=== PATIENT | female | born 1980 | race Caucasian/White ===

== ENCOUNTER 2017-09-01 18:07 | Emergency (ER) | payer OTHER ==
[2017-09-01 18:22] VITALS: TEMP 99.1; BMI 19.3
--- NOTE | 2017-09-01 19:37 | PDOC ---
History of Present Illness - General Chief Complaint: Psychiatric Stated Complaint: DIZZINESS Time Seen by Provider: 09/01/17 19:18 History Source: Patient - History of Present Illness Initial Comments: 09/01/17 19:32 37 year old female c/o about feeling dizzy while driving followed by palpitations similar to panic attacks. patient has a history of anxiety and hypertension. recently changed to Lopressor 50mg daily. patient also reports that today she was told by her boss that she would be fired if she doesn't show up to work on Wednesday. She said work has been stressful lately working 50hours/ week. patient is currently asymptomatic. Past History - Past Medical History Allergies/Adverse Reactions: Allergies Allergy/AdvReac Type Severity Reaction Status Date / Time Penicillins Allergy Verified 09/01/17 18:17 epinephrine AdvReac Verified 09/01/17 18:17 HTN: Yes Psychiatric Problems: Yes (anxiety/depression) - Suicide/Smoking/Psychosocial Hx Smoking History: Never smoked Have you smoked in the past 12 months: No Information on smoking cessation initiated: No Hx Alcohol Use: No Drug/Substance Use Hx: No Substance Use Type: None Review of Systems - Review of Systems Able to Perform ROS?: Yes *Physical Exam - Vital Signs Last Vital Signs Temp Pulse Resp BP Pulse Ox 99.1 F 110 H 24 159/99 100 09/01/17 18:17 09/01/17 18:17 09/01/17 18:17 09/01/17 18:17 09/01/17 18:17 - Physical Exam General Appearance: Yes: Appropriately Dressed Respiratory/Chest: positive: Lungs Clear, Normal Breath Sounds Cardiovascular: positive: Regular Rhythm, Regular Rate, S1, S2. negative: Edema , JVD, Murmur, Bradycardia, Tachycardia, Diastolic Murmur, Systolic Murmur, Gallop/S3, Gallop/S4, Irregularly Irregular, Irregular, Other Gastrointestinal/Abdominal: positive: Normal Bowel Sounds, Soft Heart Score/ECG Review - ECG Intrepretation Rhythm: Regular Rhythm Comment:: 09/01/17 20:09 NSR: 84bpm Medical Decision Making - Medical Decision Making 09/01/17 19:39 A: anxiety P: Slightly tachycardic on arrival. EKG patient reports that she will follow up with pmd as soon as possible. *DC/Admit/Observation/Transfer Diagnosis at time of Disposition: Anxiety - Discharge Dispostion Disposition: HOME - Referrals Referrals: Chayo Avendaño MD [Primary Care Provider] - Call tomorrow - Patient Instructions Printed Discharge Instructions: Anxiety and Panic Attacks (Alternative Therapy) Additional Instructions: please follow up with your doctor as soon as possible return to the ED if symptoms worsen.
--- NOTE | 2017-09-01 19:43 | PDOC ---
*Physical Exam - Vital Signs Last Vital Signs Temp Pulse Resp BP Pulse Ox 99.1 F 110 H 24 159/99 100 09/01/17 18:17 09/01/17 18:17 09/01/17 18:17 09/01/17 18:17 09/01/17 18:17 Medical Decision Making - Medical Decision Making 09/01/17 19:43 agree with care from [facility] *DC/Admit/Observation/Transfer Diagnosis at time of Disposition: Anxiety - Discharge Dispostion Disposition: HOME - Referrals Referrals: Chayo Avendaño MD [Primary Care Provider] - Call tomorrow - Patient Instructions Printed Discharge Instructions: Anxiety and Panic Attacks (Alternative Therapy) Additional Instructions: please follow up with your doctor as soon as possible return to the ED if symptoms worsen. - Post Discharge Activity
[2017-09-01 20:12] VITALS: BP 143/78; PULSE 80
--- NOTE | 2017-09-02 11:54 | EKG ---
Test Reason : Blood Pressure : / mmHG Vent. Rate : 084 BPM Atrial Rate : 084 BPM P-R Int : 144 ms QRS Dur : 082 ms QT Int : 356 ms P-R-T Axes : 072 081 062 degrees QTc Int : 420 ms NORMAL SINUS RHYTHM NORMAL ECG NO PREVIOUS ECGS AVAILABLE Confirmed by ELSA PIÑA MD ([id number]) on 09/02/2017 11:54:06 AM Referred By: Confirmed By:ELSA PIÑA MD
== END 2017-09-01 20:15 | disposition home or self-care (01) ==
LOC: JER 18:07
DX: F41.8 Other specified anxiety disorders (principal); I10 Essential (primary) hypertension
CPT/HCPCS: 93005; 93010; 99282-25